=== PATIENT | male | born 1965 | race Caucasian/White ===

== ENCOUNTER 2017-12-13 12:48 | Emergency (ER) | payer OTHER, SELFPAY ==
[2017-12-13 12:49] VITALS: BP 132/94; PULSE 78; RESP 18; TEMP 36.8; O2SAT 96; BMI 37.2
--- NOTE | 2017-12-13 13:01 | XR_ITS ---
XR chest 2V Ordering Physician: Slime Doan MD Patient Age: 52 years: Male HISTORY: ITS.REASON: dizzinessheadache dizziness TECHNIQUE: PA and lateral chest COMPARISON :1 none FINDINGS Lungs clear no active disease. No pneumothorax. No pleural effusion. Heart nava and mediastinal structures satisfactory. Mild Chest wall T-spine satisfactory Mild hyperexpansion with slight flattening of diaphragm diaphragm. IMPRESSION: Lungs clear nothing definitely acute
--- NOTE | 2017-12-13 13:15 | CT_ITS ---
CT head/brain wo con Ordering Physician: Patient Age: 52 years: Male HISTORY: ITS.REASON: dizziness blurred vision near syncope TECHNIQUE: Routine CT head without contrast. Bone and brain windows performed and submitted to PACS for review. COMPARISON :None FINDINGS No acute intracranial findings . No hemorrhage. No mass. No subdural nor no extra-axial collections No territorial infarct. The ventricles and basal cisterns appear satisfactory. Orbits unremarkable. Bone windows. A generous mucosal thickening and inflammatory changes seen throughout the ethmoid air cells with mild/moderate mucosal thickening extending into inferior frontal sinuses bilaterally.. Left sphenoid sinus with possible trace air-fluid level versus mild mucosal thickening at top of the maxillary sinuses unremarkable. On CT cone machine operator view incidental note Prominent adenoids for age. & Prominent engorgement & swelling nasal turbinates. Mastoid air cells well-developed and clear. Middle air and IACs unremarkable. Cerumen at the left external canal. IMPRESSION . 1.. Brain within normal limits , with no acute intracranial findings on this noncontrast CT.. 2. Notable Paranasal sinus disease. Generous ethmoid sinusitis with mucosal thickening extends to the inferior frontal sinuses bilateral . Small air-fluid level versus posterior mucosal thickening at the left sphenoid sinus.
--- NOTE | 2017-12-13 13:15 | HMH.EDABDPAI ---
ED Disposition Attestation: On , the high probability of a clinically significant, sudden or life threatening deterioration of the following system(s) required my full and direct attention, intervention and personal management. The time I documented below is in addition to time spent performing reported procedures but includes the following listed in this critical care notation. Medical Decision Making Vital Signs: 12/13/17 12:49 Temperature 98.2 F Temperature Source Oral Pulse Rate [Right Brachial] 78 Respiratory Rate 18 Blood Pressure [Right Arm] 132/94 Blood Pressure Mean [Right Arm] 106 Blood Pressure Source [Right Arm] Automatic Cuff Blood Pressure Position [Right Arm] Sitting 02 Sat by Pulse Oximetry 96 Oxygen Delivery Method Room Air Orders (Tests/Meds): ORDERS Category Date Time Status Chest XR 2 view (NOT portable) [XR chest 2V] Stat Exams 12/13/17 13:01 Ordered Cardiac Enzymes Stat Lab 12/13/17 13:00 Received Complete Blood Count Auto Diff Stat Lab 12/13/17 13:00 Received Comprehensive Metabolic Panel Stat Lab 12/13/17 13:00 Received Abdominal Pain HPI - General Chief Complaint: Dizziness Stated Complaint: dizzy Time Seen by Provider: 12/13/17 13:15 Mode of Arrival: Ambulatory Limitations: No Limitations Description of Symptoms (Recalled from ER Triage Doc. by RN): Pt reports was sitting down to eat lunch when he got dizzy suddenly and broke out in a cold sweat. Pt reports was feeling normal prior to this. - Related Data Allergies Allergy/AdvReac Type Severity Reaction Status Date / Time Penicillin Allergy Unknown Uncoded 09/21/17 14:59 [facility] History Medical History: Denies:: Diabetes Mellitus Type 1, Diabetes Mellitus Type 2 - Social History Smoking Status: Former smoker Alcohol Intake: never - Psychiatric History Expresses thoughts of harming self/others: None Suicide Plan Description: No Plan
--- NOTE | 2017-12-13 13:16 | HMH.EDDIZZ ---
ED Disposition Clinical Impression: Dizziness of unknown cause Disposition: Home, Self-Care Condition on Discharge: Good Additional Instructions: follow up with Dr. Servin in one to two days Referrals: Diony Servin MD [Primary Care Provider] - - Critical Care Critical Care Time: No Attestation: On , the high probability of a clinically significant, sudden or life threatening deterioration of the following system(s) required my full and direct attention, intervention and personal management. The time I documented below is in addition to time spent performing reported procedures but includes the following listed in this critical care notation. Medical Decision Making Vital Signs: 12/13/17 12:49 12/13/17 14:49 Temperature 98.2 F Temperature Source Oral Pulse Rate [Right Brachial] 78 60 Respiratory Rate 18 16 Blood Pressure [Right Arm] 132/94 121/84 Blood Pressure Mean [Right Arm] 106 96 Blood Pressure Source [Right Arm] Automatic Cuff Automatic Cuff Blood Pressure Position [Right Arm] Sitting Sitting 02 Sat by Pulse Oximetry 96 96 Oxygen Delivery Method Room Air Room Air - Lab Data Lab Results 12/13/17 13:00: WBC 7.8, RBC 5.65, Hgb 15.7, Hct 46.3, MCV 81.9, MCH 27.7, MCHC 33.8, RDW 13.2, Plt Count 261, MPV 7.5, Neut % (Auto) 54.5, Lymph % (Auto) 32.1, [place] % (Auto) 7.1, Eos % (Auto) 5.4, Baso % (Auto) 0.8, Neut # (Auto) 4.3, Lymph # (Auto) 2.5, [place] # (Auto) 0.6, Eos # (Auto) 0.4, Baso # (Auto) 0.1 12/13/17 13:00: Sodium 140, Potassium 3.8, Chloride 102, Carbon Dioxide 32, Anion Gap 9.8, BUN 19 H, Creatinine 0.88, Estimated Creat Clear 183, Estimated GFR 91, Est GFR ( Amer) 110, Glucose 120 H, Calcium 9.2, Total Bilirubin 0.4, AST 18, ALT 47, Alkaline Phosphatase 60, Total Creatine Kinase 236, CK-MB (CK-2) 3.0, CK-MB (CK-2) Rel Index 1.3, Troponin I < 0.02, Total Protein 7.8, Albumin 4.1, Globulin 3.7 H, Albumin/Globulin Ratio 1.1 12/13/17 15:05: Troponin I < 0.02 Result diagrams: 12/13/17 13:00 12/13/17 13:00 Orders (Tests/Meds): ORDERS Category Date Time Status Chest XR 2 view (NOT portable) [XR chest 2V] Stat Exams 12/13/17 13:01 Taken - Radiology Data #1 Image(s): Chest Image Reviewed: Yes I reviewed the patient's radiology image Preliminary Findings: Normal/NAD, No Infiltrates Seen, Normal Lung Inflation Tani, Normal Heart Size - CT Data CT Scan: Head Time Received: 16:[address] Reviewed: Yes: I have reviewed the patient's CT results, I have viewed the radiologist's interpretation Preliminary Findings: Normal/NAD - ECG Data Tracing #1 I reviewed this ECG and interpreted as documented below: ECG normal with no acute: arrhythmias, ischemia, conduction abnormalities, chamber hypertrophy - Fidencio Inquiry Pt receiving controlled substance: No - Reevaluation(s) Time: 14:26 Reevaluation #1: Pt states his entire right hand feels numb. He was reexamined. Hand is warm, well perfused, with FROM. Neg Tinel's and neg Phalen's. Has IV in right antecubital area that is removed and he is moving his hand and arm easily. Subjectively numb over ulnar nerve distribution of right hand to light touch. Ribbon Inker equal. Will reevaluate once IV has been out for more time and he has been able to move his arm and hand better. No headache. No other neurological sx. Medical Decision Narrative: Second troponin normal, patient stable, no complaints, may f/u PCP Dizzy HPI - General Chief Complaint: Dizziness Stated Complaint: dizzy Time Seen by Provider: 12/13/17 13:15 Mode of Arrival: Ambulatory Source of Information: Patient Limitations: No Limitations Description of Symptoms (Recalled from ER Triage Doc. by RN): Pt reports was sitting down to eat lunch when he got dizzy suddenly and broke out in a cold sweat. Pt reports was feeling normal prior to this. - History of Present Illness HPI Narrative: Patient was walking from truck to lunch place when he felt a little lightheaded
--- NOTE | 2017-12-13 13:19 | ED_ITS ---
ED Disposition Clinical Impression: Dizziness of unknown cause Disposition: Home, Self-Care Condition on Discharge: Good Additional Instructions: follow up with Dr. Servin in one to two days Referrals: Diony Servin MD [Primary Care Provider] - - Critical Care Critical Care Time: No Attestation: On , the high probability of a clinically significant, sudden or life threatening deterioration of the following system(s) required my full and direct attention, intervention and personal management. The time I documented below is in addition to time spent performing reported procedures but includes the following listed in this critical care notation. Medical Decision Making Vital Signs: 12/13/17 12:49 12/13/17 14:49 Temperature 98.2 F Temperature Source Oral Pulse Rate [Right Brachial] 78 60 Respiratory Rate 18 16 Blood Pressure [Right Arm] 132/94 121/84 Blood Pressure Mean [Right Arm] 106 96 Blood Pressure Source [Right Arm] Automatic Cuff Automatic Cuff Blood Pressure Position [Right Arm] Sitting Sitting 02 Sat by Pulse Oximetry 96 96 Oxygen Delivery Method Room Air Room Air - Lab Data Lab Results 12/13/17 13:00: WBC 7.8, RBC 5.65, Hgb 15.7, Hct 46.3, MCV 81.9, MCH 27.7, MCHC 33.8, RDW 13.2, Plt Count 261, MPV 7.5, Neut % (Auto) 54.5, Lymph % (Auto) 32.1 , [place] % (Auto) 7.1, Eos % (Auto) 5.4, Baso % (Auto) 0.8, Neut # (Auto) 4.3, Lymph # (Auto) 2.5, [place] # (Auto) 0.6, Eos # (Auto) 0.4, Baso # (Auto) 0.1 12/13/17 13:00: Sodium 140, Potassium 3.8, Chloride 102, Carbon Dioxide 32, Anion Gap 9.8, BUN 19 H, Creatinine 0.88, Estimated Creat Clear 183, Estimated GFR 91, Est GFR ( Amer) 110, Glucose 120 H, Calcium 9.2, Total Bilirubin 0.4, AST 18, ALT 47, Alkaline Phosphatase 60, Total Creatine Kinase 236, CK-MB ( CK-2) 3.0, CK-MB (CK-2) Rel Index 1.3, Troponin I < 0.02, Total Protein 7.8, Albumin 4.1, Globulin 3.7 H, Albumin/Globulin Ratio 1.1 12/13/17 15:05: Troponin I < 0.02 Result diagrams: 12/13/17 13:00 12/13/17 13:00 Orders (Tests/Meds): ORDERS Category Date Time Status Chest XR 2 view (NOT portable) [XR chest 2V] Stat Exams 12/13/17 13:01 Taken - Radiology Data #1 Image(s): Chest Image Reviewed: Yes I reviewed the patient's radiology image Preliminary Findings: Normal/NAD, No Infiltrates Seen, Normal Lung Inflation Tani , Normal Heart Size - CT Data CT Scan: Head Time Received: 16:[address] Reviewed: Yes: I have reviewed the patient's CT results, I have viewed the radiologist's interpretation Preliminary Findings: Normal/NAD - ECG Data Tracing #1 I reviewed this ECG and interpreted as documented below: ECG normal with no acute: arrhythmias, ischemia, conduction abnormalities, chamber hypertrophy - Fidencio Inquiry Pt receiving controlled substance: No - Reevaluation(s) Time: 14:26 Reevaluation #1: Pt states his entire right hand feels numb. He was reexamined. Hand is warm, well perfused, with FROM. Neg Tinel's and neg Phalen's. Has IV in right antecubital area that is removed and he is moving his hand and arm easily. Subjectively numb over ulnar nerve distribution of right hand to light touch. Photographic Intelligence Officer equal. Will reevaluate once IV has been out for more time and he has been able to move his arm and hand better. No headache. No other neurological sx. Medical Decision Narrative: Second troponin normal, patient stable, no complaints, may f/u PCP
[2017-12-13 13:37] LABS: Basophils # 0.1 K/mm3 (0-0.2); Basophils % 0.8 % (0.1-2.0); Eosinophils # 0.4 K/mm3 (0.0-0.4); Eosinophils % 5.4 % (0.1-12.0); Hematocrit 46.3 % (42.0-52.0); Hemoglobin 15.7 g/dL (14.1-18.0); Lymphocytes # 2.5 K/mm3 (0.7-4.5); Lymphocytes % 32.1 K/mm3 (10-50); Mean Corpuscular HGB Conc 33.8 g/dL (31.8-35.4); Mean Corpuscular Hemoglobin 27.7 pg (27.0-31.2); Mean Corpuscular Volume 81.9 fl (80-94); Mean Platelet Volume 7.5 fl (7.4-10.4); Monocytes # 0.6 K/mm3 (0.1-1.0); Monocytes % 7.1 % (1.7-9.3); Neutrophils # 4.3 K/mm3 (1.8-7.8); Neutrophils % 54.5 % (37.0-80.0); Platelet Count 261 K/mm3 (142-424); Red Blood Count 5.65 M/mm3 (4.60-6.20); Red Cell Distribution Width 13.2 % (11.5-17.5); White Blood Count 7.8 K/mm3 (4.8-10.8)
[2017-12-13 13:44] LABS: Alanine Aminotransferase 47 U/L (12-78); Albumin Level 4.1 gm/dL (3.4-5.0); Albumin/Globulin Ratio 1.1 (1.1-1.8); Alkaline Phosphatase 60 U/L (46-116); Anion Gap 9.8 mEq/L (5-15); Aspartate Amino Transferase 18 U/L (15-37); Bilirubin,Total 0.4 mg/dL (0.2-1.0); Blood Urea Nitrogen 19 mg/dL (7-18); CKMB Relative Index 1.3 U/L (0-4.0); Calcium 9.2 mg/dL (8.5-10.1); Carbon Dioxide 32 mmol/L (21.0-32.0); Chloride 102 mmol/L (98-107); Creatine Kinase 236 U/L (39-308); Creatinine Clearance Estimated 183 mL/min (0-300); Creatinine,Serum 0.88 mg/dL (0.70-1.30); Estimated Glomerular Filt Rate 91 ml/min (>60); GFR (African American) 110 ML/MIN (>60); Globulin 3.7 gm/dl (1.3-3.2); Glucose 120 mg/dL (74-106); Potassium 3.8 mmoL/L (3.5-5.1); Sodium 140 mmol/L (136-145); Total Protein,Serum 7.8 gm/dL (6.4-8.2); Troponin I < 0.02 ng/ml (0.00-0.06)
--- NOTE | 2017-12-13 14:18 | PC.NURSE ---
pt called out for someone to come talk to him. I went into room and pt stated that his right arm was going numb, reported this to Dr. Doan. Dr. Doan asked that IV be removed. IV removed at this time.
[2017-12-13 14:49] VITALS: BP 121/84; PULSE 60; RESP 16; O2SAT 96
[2017-12-13 15:29] LABS: Troponin I < 0.02 ng/ml (0.00-0.06)
[2017-12-13 16:06] VITALS: BP 121/84; PULSE 68; RESP 18; TEMP 36.7; O2SAT 98
== END 2017-12-13 16:07 | disposition home or self-care (01) ==
PROVIDERS: Emergency Provider Emergency Medicine; Family Provider Family Medicine; PCP Family Medicine
DX: R42 Dizziness and giddiness (principal)
CPT/HCPCS: 36415; 70450; 71046; 80053; 82550; 82553; 84484; 85025; 93005; 99283

== ENCOUNTER 2018-05-30 08:30 | Outpatient (RCR) | payer OTHER, SELFPAY ==
--- NOTE | 2018-05-24 09:04 | HMH.PTOPEV ---
PT Outpatient Evaluation Rehab PT Outpatient Evaluation Start: 05/24/18 08:05 Freq: Status: Active Protocol: Document 05/24/18 08:51 ALCIRA (Rec: 05/24/18 09:04 PHOLD [id number]) Electronically Signed By Chris Perez, PT 05/24/18 08:51 Outpatient Therapy Subjective History Subjective History Pt is 53 yowm who presents with acute onset LBP and left LE tingling x ~ 1 mo. He reports he has hx of LBP with a lumbar surgery (possibly laminectomy) performed ~ 18 yrs ago with good results. He reports this episode was insidious in nature, but he does lift and reach a lot at work. He continues to have pain/tingling/numbness throughout his left LE, but no c/o weakness. He reports no significant PMH. Chief Complaint Pain Symptom Type Ache Symptoms Relieved By Rest/Positioning Symptoms Aggravated By Bending/Stooping Twisting Prior Functional Limitations None Current Functional Limitations Driving Symptom Description Constant but Variable Level of pain today (0-10) 1 Pain scale - at its worst (0-10) 8 Lumbopelvic Eval Gait Observation General Gait Pattern Observation No Deviations/Normal Palapation tenderness left buttock tenderness Yes: piriformis area Lumbar/Sacral Palpation Findings Tenderness Lumbar/Sacral Palpation Overall Comment left SI Range of Motion Lumbar Spine Active Flexion Range of 0-55 Motion (degrees) Lumbar Spine Active Extension Range of 0-20 Motion (degrees) Left Lumbar Spine Lateral Flexion Active 0-20 Range of Motion (degrees) Right Lumbar Spine Lateral Flexion 0-20 Active Range of Motion (degrees) Manual Muscle Test Bilateral Knee Extension Strength Grade 5 Normal Knee Flexion Strength Grade 5 Normal Hip Flexion Strength Grade 5 Normal Hip Abduction Strength Grade 5 Normal Hip Adduction Strength Grade 5 Normal Hip External Rotation Strength Grade 5 Normal Hip Internal Rotation Strength Grade 5 Normal Hip Extension Strength Grade 5 Normal Gluteus Sunil Strength Grade 5 Normal Extensor Hallucis Longus Strength Grade 5 Normal Ankle Dorsiflexion Strength Grade 5 Normal Gastronemius/Soleus Strength Grade 5 Normal DTR Rt Patellar 2+ Lt Patellar 2+ Rt Gastroc/Soleus 2+ Lt Gastroc/Soleus
== END 2018-05-30 08:31 | disposition home or self-care (01) ==
LOC: PT 08:30
PROVIDERS: Family Provider Family Medicine; PCP Family Medicine; Visit Provider Family Medicine
DX: M54.9 Dorsalgia, unspecified (principal)
CPT/HCPCS: 97010; 97014; 97033; 97110; 97163; G0283

== ENCOUNTER → 2018-09-12 11:05 | Outpatient (CLI) | payer OTHER, SELFPAY ==
--- NOTE | 2018-09-12 11:22 | XR_ITS ---
EXAM: XR lumbar spine min 4V HISTORY: ITS.REASON: LOW BACK PAIN ORDERING PHYSICIAN: Ashley Hackett PATIENT AGE: 53 years COMPARISON: None FINDINGS: Normal alignment. No fracture or dislocation. No lytic or blastic change. There is mild degenerative disc disease at L5-S1. Mild facet hypertrophic changes also present at L5-S1. There is some sclerosis of the superior aspect of the right SI joint. IMPRESSION: 1. Mild degenerative disc disease and facet arthritic change at L5-S1. 2. Sclerosis of the right SI joint superiorly
--- NOTE | 2018-09-12 15:59 | XR_ITS ---
XR hip LT 2-3V w/pelvis HISTORY: ITS.REASON: LEFT HIP PAIN ORDERING PHYSICIAN: Ashley Hackett PATIENT AGE: 53 years COMPARISON: None FINDINGS: No fracture or dislocation is evident. No significant degenerative change. No lytic or blastic change. Unremarkable soft tissues. There is a small bone island in the femoral head IMPRESSION: Negative left hip
== END ==
PROVIDERS: PCP Nurse Practitioner Family; Visit Provider Nurse Practitioner Family
DX: M54.5 Low back pain (principal); M25.552 Pain in left hip
CPT/HCPCS: 72110; 73502

== ENCOUNTER → 2018-09-26 08:37 | Outpatient (POV) | payer OTHER, SELFPAY ==
[2018-09-26 08:55] VITALS: BP 131/81; PULSE 70; RESP 18; O2SAT 99
--- NOTE | 2018-09-26 09:14 | HMH.PMCON ---
Assessment and Plan (1) Sacroiliitis Current visit: Yes Status: Chronic Category: Medical Code(s): M46.1 - Sacroiliitis, not elsewhere classified (2) Back pain Current visit: Yes Status: Chronic Qualifiers: Back pain location: low back pain Chronicity: chronic Category: Medical Code(s): M54.9 - Dorsalgia, unspecified - Assessment and plan all Dx Assessment and Plan for all problems:: Patient has an x-ray showing sclerosis of the SI joints. I believe that given his symptomology bilateral SI joint injections will be beneficial for him. Patient is going to continue his home stretching program and continue his anti-inflammatories. I will follow-up with him after his injection. This note was dictated using voice recognition software and may contain errors or omissions HPI - Data of Consult Consult date: 09/26/18 Requesting Physician: Caterina Sanderson APRN Primary Care Provider: Diony Servin MD - Consult Narrative Reason for consult: back pain, hip pain History of present illness: Mr. Marinelli is a 53 year old male who presents today for consultation in regards to his hip and back pain. Patient states that bending increases pain while resting and Tylenol decrease pain. Patient rates her pain his pain is 5 out of 10 he states he has had it for 6 months or more. Patient states that it is getting worse. Patient has done and completed physical therapy with minimal relief. Patient has had back surgery in the past. CC: Caterina Sanderson APRN [facility] History I have reviewed the patient's past medical history: Yes Medical History: Reports:: Diabetes Mellitus Type 2 (borderline), Gastroesophageal Reflux Disease(GERD), Hyperlipidemia, Hypertension, Lung Disease (sleep apnea- uses CPAP) Denies:: Diabetes Mellitus Type 1, Internal Pacemaker, Seizures Other Surgeries: Yes: Other (back sx, ganglion cyst removal). No: Pacemaker - *Social History Smoking Status: Never smoker Alcohol Intake: never Occupational Status: employed Housing: house Household Members: spouse - Psychiatric History Expresses thoughts of harming self/others: None Suicide Plan Description: No Plan *Family Hx:: Unable to obtain Review of Systems - Review of Systems ROS General: no recent weight change, no fever, no sleep disturbances Respiratory: no cough, no shortness of air, no recurring pulmonary infections Cardiovascular/Peripheral Vascular: No chest pain, No palpitations, no edema, no shortness of breath. Gastrointestinal: no incontinence, normal bowel movements reported Genitourinary: no incontinence Musculoskeletal: SI joint pain, back pain Psychiatric: normal mood/ affect Neurological: [denies weakness in extremities], [denies balance issues] Meds Home Medications Medication Instructions Recorded Confirmed Type Furosemide [Furosemide 20mg Tab] 20 mg PO DAILY 07/08/18 07/15/18 History Losartan/Hydrochlorothiazide 1 tab PO DAILY 07/08/18 07/15/18 History [Losartan-Hctz 100-12.5 mg Tab] Ascorbic Acid [Vitamin C] 1,000 mg PO DAILY 07/15/18 07/15/18 History Esomeprazole Magnesium [Nexium] 10 mg PO DAILY 07/15/18 07/15/18 History Gluc/Mitchell-MSM#1/C/Wilberto/Terrance/Bor 1 each PO DAILY 07/15/18 07/15/18 History [Osteo Bi-Flex Caplet] Glucosamine Sulfate Dipot Chlr 1,500 mg PO DAILY 07/15/18 07/15/18 History [Glucosamine] Levothyroxine Sodium 25 mcg PO DAILY 07/15/18 07/15/18 History [Levothyroxine 25mcg (0.025mg) Tab] Loratadine [Allergy Relief] 10 mg PO DAILY 07/15/18 07/15/18 History Mv-Mins/Folic/Lycopene/Ginkgo [One 1 each PO DAILY 07/15/18 07/15/18 History Daily For Men 50+ Adv Tab] Naproxen 500 mg PO DAILY 07/15/18 07/15/18 History Rosuvastatin Calcium 10 mg PO DAILY 07/15/18 07/15/18 History Allergies Allergy/AdvReac Type Severity Reaction Status Date / Time Penicillins Allergy Mild Hives Verified 07/08/18 14:11 Objective Vital signs: Pulse Resp BP Pulse Ox 70
--- NOTE | 2018-09-26 09:22 | P.CONS_ITS ---
Assessment and Plan (1) Sacroiliitis Current visit: Yes Status: Chronic Category: Medical Code(s): M46.1 - Sacroiliitis, not elsewhere classified (2) Back pain Current visit: Yes Status: Chronic Qualifiers: Back pain location: low back pain Chronicity: chronic Category: Medical Code(s): M54.9 - Dorsalgia, unspecified - Assessment and plan all Dx Assessment and Plan for all problems:: Patient has an x-ray showing sclerosis of the SI joints. I believe that given his symptomology bilateral SI joint injections will be beneficial for him. Patient is going to continue his home stretching program and continue his anti-inflammatories. I will follow-up with him after his injection. This note was dictated using voice recognition software and may contain errors or omissions HPI - Data of Consult Consult date: 09/26/18 Requesting Physician: Caterina Sanderson APRN Primary Care Provider: Diony Servin MD - Consult Narrative Reason for consult: back pain, hip pain History of present illness: Mr. Marinelli is a 53 year old male who presents today for consultation in regards to his hip and back pain. Patient states that bending increases pain while resting and Tylenol decrease pain. Patient rates her pain his pain is 5 out of 10 he states he has had it for 6 months or more. Patient states that it is getting worse. Patient has done and completed physical therapy with minimal relief. Patient has had back surgery in the past. CC: Caterina Sanderson APRN [facility] History I have reviewed the patient's past medical history: Yes Medical History: Reports:: Diabetes Mellitus Type 2 (borderline), Gastroesophageal Reflux Disease(GERD), Hyperlipidemia, Hypertension, Lung Disease (sleep apnea- uses CPAP) Denies:: Diabetes Mellitus Type 1, Internal Pacemaker, Seizures Other Surgeries: Yes: Other (back sx, ganglion cyst removal). No: Pacemaker - *Social History Smoking Status: Never smoker Alcohol Intake: never Occupational Status: employed Housing: house Household Members: spouse - Psychiatric History Expresses thoughts of harming self/others: None Suicide Plan Description: No Plan *Family Hx:: Unable to obtain Review of Systems - Review of Systems ROS General: no recent weight change, no fever, no sleep disturbances Respiratory: no cough, no shortness of air, no recurring pulmonary infections Cardiovascular/Peripheral Vascular: No chest pain, No palpitations, no edema, no shortness of breath. Gastrointestinal: no incontinence, normal bowel movements reported Genitourinary: no incontinence Musculoskeletal: SI joint pain, back pain Psychiatric: normal mood/ affect Neurological: [denies weakness in extremities], [denies balance issues] Meds Home Medications Medication Instructions Recorded Confirmed Type Furosemide [Furosemide 20mg Tab] 20 mg PO DAILY 07/08/18 07/15/18 History Losartan/Hydrochlorothiazide 1 tab PO DAILY 07/08/18 07/15/18 History [Losartan-Hctz 100-12.5 mg Tab] Ascorbic Acid [Vitamin C] 1,000 mg PO DAILY 07/15/18 07/15/18 History Esomeprazole Magnesium [Nexium] 10 mg PO DAILY 07/15/18 07/15/18 History Gluc/Mitchell-MSM#1/C/Wilberto/Terrance/Bor 1 each PO DAILY 07/15/18 07/15/18 History [Osteo Bi-Flex Caplet] Glucosamine Sulfate Dipot Chlr 1,500 mg PO DAILY 07/15/18 07/15/18 History [Glucosamine] Levothyroxine Sodium 25 mcg PO DAILY 07/15/18 07/15/18 History
== END ==
PROVIDERS: PCP Family Medicine; Visit Provider Clinical Nurse Specialist Family Health
DX: M46.1 Sacroiliitis, not elsewhere classified (principal); M54.9 Dorsalgia, unspecified
CPT/HCPCS: 99202

== ENCOUNTER → 2018-11-07 15:10 | Outpatient (POV) | payer OTHER, SELFPAY ==
[2018-11-07 15:22] VITALS: BP 147/94; PULSE 98; RESP 18; O2SAT 99; BMI 34.7
--- NOTE | 2018-11-08 08:20 | P.CONS_ITS ---
[facility] Pain Management SOAP Note Subjective:: Patient is a pleasant 53-year-old white male who we are treating for hip pain. Patient states that he is doing well after his left SI joint injection. He is having some bursa pain at this time. We discussed doing one more injection to see if this is beneficial for him. Patient is continuing home stretching exercises and is on anti-inflammatories. The pain is in his left hip and he rates it a 4 out of 10 today. ROS General: no recent weight change, no fever, no sleep disturbances Respiratory: no cough, no shortness of air, no recurring pulmonary infections Cardiovascular/Peripheral Vascular: No chest pain, No palpitations, no edema, no shortness of breath. Gastrointestinal: no incontinence, normal bowel movements reported Genitourinary: no incontinence Musculoskeletal: Left hip pain Psychiatric: normal mood/ affect Neurological: [denies weakness in extremities], [denies balance issues] Objective:: Physical Exam General: Alert and oriented x3, no acute distress, pleasant and cooperative, [on room air] Lungs: Resps E/U, Symmetrical chest expansion, Eyes: PERRL Musculoskeletal: Flexion and extension of lumbar spine somewhat guarded secondary to pain, deep tendon reflexes normal, strength in upper and lower extremities [5/5], [abnormal gait noted] positive Chester's test, positive hip stress test, positive SI compression test on the left side. Extreme point tenderness over left greater trochanteric bursa Neurological: speech clear, tire adjuster equal, no gross sensory deficits Assessment:: Sacroiliitis, bursitis Plan:: We will schedule left SI and left greater trochanteric bursa injection for the patient. I will follow-up with the patient at that time. Dr. Duarte has reviewed this note and agrees with this plan of care. This note was dictated using voice recognition software and may contain errors or omissions
== END ==
PROVIDERS: PCP Family Medicine; Visit Provider Clinical Nurse Specialist Family Health
DX: M46.1 Sacroiliitis, not elsewhere classified (principal); M71.9 Bursopathy, unspecified
CPT/HCPCS: 99213

== ENCOUNTER → 2018-12-13 09:21 | Outpatient (POV) | payer OTHER, SELFPAY ==
[2018-12-13 09:24] VITALS: BP 158/98; PULSE 85; RESP 18; O2SAT 98; BMI 35.9
--- NOTE | 2018-12-13 09:55 | P.CONS_ITS ---
[facility] Pain Management SOAP Note Subjective:: Patient is a pleasant 53-year-old white male who presents today for follow-up. Patient is having worsening back pain now radiating down his right leg causing weakness and numbness and tingling. It travels all the way to his toes. He rates his pain a 8 out of 10. Patient is currently on prednisone from his primary care physician. He has no recent updated MRI. Patient has had back surgery in the past. ROS General: no recent weight change, no fever, no sleep disturbances Respiratory: no cough, no shortness of air, no recurring pulmonary infections Cardiovascular/Peripheral Vascular: No chest pain, No palpitations, no edema, no shortness of breath. Gastrointestinal: no incontinence, normal bowel movements reported Genitourinary: no incontinence Musculoskeletal: Back pain, leg pain Psychiatric: normal mood/ affect Neurological: [denies weakness in extremities], [denies balance issues] Objective:: Physical Exam General: Alert and oriented x3, no acute distress, pleasant and cooperative, [on room air] Lungs: Resps E/U, Symmetrical chest expansion, Eyes: PERRL Musculoskeletal: Flexion and extension of lumbar spine somewhat guarded secondary to pain, deep tendon reflexes normal, strength in upper and right lower extremities [5/5], left lower extremity 4/5, antalgic gait noted, positive straight leg raise test on the left side at 30 degrees Neurological: speech clear, satellite tv technician equal, no gross sensory deficits Assessment:: Degenerative disc disease lumbar spine with lumbar radiculopathy along with postlaminectomy syndrome and sacroiliitis Plan:: We will schedule a updated MRI for the patient I believe it would be beneficial given his next and worsening symptomology. I will follow-up with the patient after his MRI and reassess his symptoms at that time Dr. Duarte has reviewed this note and agrees with this plan of care. This note was dictated using voice recognition software and may contain errors or omissions
== END ==
PROVIDERS: PCP Family Medicine; Visit Provider Clinical Nurse Specialist Family Health
DX: M51.16 Intervertebral disc disorders with radiculopathy, lumbar region (principal); M96.1 Postlaminectomy syndrome, not elsewhere classified; M46.1 Sacroiliitis, not elsewhere classified
CPT/HCPCS: 99213

== ENCOUNTER → 2018-12-20 12:44 | Outpatient (CLI) | payer OTHER, SELFPAY ==
--- NOTE | 2018-12-20 12:49 | MR_ITS ---
MR lumbar spine wo con, MR 3-d myelogram/MRCP HISTORY: PT states low back pain, left leg pain, numbness and tingling X 6 months or so. Prior laminectomy years ago. ITS.REASON: BACK PAIN ORDERING PHYSICIAN: Caterina Sanderson PATIENT AGE: 53 years Comparison: X-RAY 09/12/18 TECHNIQUE: Standard multiplanar multiecho sequences are performed without contrast. 3-D MIP and myelographic images are also rendered and reviewed FINDINGS: There is normal alignment. Spinal cord ends at the L1 level. T12-L1, L1-L2, and L2-L3 have an unremarkable appearance. L3-L4: There is mild facet and ligamentum flavum hypertrophy with mild bilateral foraminal narrowing. L4-L5: There is mild bulging disc along with a broad-based left paracentral and foraminal disc protrusion versus disc osteophyte complex. This is causing moderate left-sided lateral recess narrowing abutting and slightly displacing the L5 nerve root on the left. There is transverse narrowing of the canal this level due to facet and ligamentum flavum hypertrophy with the canal measuring 9 mm in transverse dimension. There is moderate bilateral foraminal narrowing. L5-S1: There is degenerative disc disease with mild retrolisthesis of L5 on S1 of 3 mm and concentric bulging disc with moderate bilateral foraminal narrowing. Suspected laminotomy defect on the left at L5-S1. IMPRESSION: 1. There is mild bulging disc at L4-L5 along with a broad-based left paracentral and foraminal disc protrusion versus disc osteophyte complex. This is causing moderate left-sided lateral recess narrowing abutting and slightly displacing the L5 nerve root on the left. There is transverse narrowing of the canal this level due to facet and ligamentum flavum hypertrophy with the canal measuring 9 mm in transverse dimension. There is moderate bilateral foraminal narrowing 2. Degenerative disc disease L5-S1 with bulging disc and moderate bilateral foraminal narrowing 3. No extruded herniated disc evident
== END ==
PROVIDERS: PCP Family Medicine; Visit Provider Clinical Nurse Specialist Family Health
DX: M54.5 Low back pain (principal)
CPT/HCPCS: 72148; 76376

== ENCOUNTER → 2019-01-03 09:08 | Outpatient (POV) | payer OTHER, SELFPAY ==
[2019-01-03 09:20] VITALS: BP 151/98; PULSE 75; RESP 18; O2SAT 98; BMI 35.9
--- NOTE | 2019-01-03 09:21 | HMH.PAINSOAP ---
[facility] Pain Management SOAP Note Subjective:: She is a pleasant 53-year-old white male who presents today for follow-up after MRI. Patient does have a lot of pain in his left leg. He has an L4-L5 broad-based left paracentral disc protrusion causing moderate left-sided lateral recess narrowing and abutting and displacing the L5 nerve root to the left. This is according to the report. Patient states that the injections seem to worsen his pain. We discussed going to see if neurosurgeon he is interested in this. He rates his pain a 9 out of 10. He is on anti-inflammatories. ROS General: no recent weight change, no fever, no sleep disturbances Respiratory: no cough, no shortness of air, no recurring pulmonary infections Cardiovascular/Peripheral Vascular: No chest pain, No palpitations, no edema, no shortness of breath. Gastrointestinal: no incontinence, normal bowel movements reported Genitourinary: no incontinence Musculoskeletal: Back pain, leg pain Psychiatric: normal mood/ affect Neurological: [denies weakness in extremities], [denies balance issues] Objective:: Physical Exam General: Alert and oriented x3, no acute distress, pleasant and cooperative, [on room air] Lungs: Resps E/U, Symmetrical chest expansion, Eyes: PERRL Musculoskeletal: Flexion and extension of lumbar spine somewhat guarded secondary to pain, deep tendon reflexes normal, strength in upper and lower extremities [5/5], [abnormal gait noted] Neurological: speech clear, machine hoop maker helper equal, no gross sensory deficits Assessment:: Degenerative disc disease lumbar spine with lumbar radiculopathy Plan:: We will send the patient for neurosurgical consultation. Will follow up with him in on as-needed basis after this. Dr. Duarte has reviewed this note and agrees with this plan of care. This note was dictated using voice recognition software and may contain errors or omissions
--- NOTE | 2019-01-03 09:24 | P.CONS_ITS ---
[facility] Pain Management SOAP Note Subjective:: She is a pleasant 53-year-old white male who presents today for follow-up after MRI. Patient does have a lot of pain in his left leg. He has an L4-L5 broad- based left paracentral disc protrusion causing moderate left-sided lateral recess narrowing and abutting and displacing the L5 nerve root to the left. This is according to the report. Patient states that the injections seem to worsen his pain. We discussed going to see if neurosurgeon he is interested in this. He rates his pain a 9 out of 10. He is on anti-inflammatories. ROS General: no recent weight change, no fever, no sleep disturbances Respiratory: no cough, no shortness of air, no recurring pulmonary infections Cardiovascular/Peripheral Vascular: No chest pain, No palpitations, no edema, no shortness of breath. Gastrointestinal: no incontinence, normal bowel movements reported Genitourinary: no incontinence Musculoskeletal: Back pain, leg pain Psychiatric: normal mood/ affect Neurological: [denies weakness in extremities], [denies balance issues] Objective:: Physical Exam General: Alert and oriented x3, no acute distress, pleasant and cooperative, [on room air] Lungs: Resps E/U, Symmetrical chest expansion, Eyes: PERRL Musculoskeletal: Flexion and extension of lumbar spine somewhat guarded secondary to pain, deep tendon reflexes normal, strength in upper and lower extremities [5/5], [abnormal gait noted] Neurological: speech clear, mathematical technician equal, no gross sensory deficits Assessment:: Degenerative disc disease lumbar spine with lumbar radiculopathy Plan:: We will send the patient for neurosurgical consultation. Will follow up with him in on as-needed basis after this. Dr. Duarte has reviewed this note and agrees with this plan of care. This note was dictated using voice recognition software and may contain errors or omissions
== END ==
PROVIDERS: PCP Family Medicine; Visit Provider Clinical Nurse Specialist Family Health
DX: M51.16 Intervertebral disc disorders with radiculopathy, lumbar region (principal)
CPT/HCPCS: 99212

== ENCOUNTER → 2019-01-19 15:11 | Outpatient (POV) | payer OTHER, SELFPAY | PROVIDERS: Visit Provider Neurological Surgery | DX: Z00.00 Encounter for general adult medical examination without abnormal findings (principal) ==

== ENCOUNTER → 2019-02-24 07:40 | Outpatient (CLI) | payer OTHER, SELFPAY ==
--- NOTE | 2019-02-24 07:46 | MR_ITS ---
MR lumbar spine wo con Ordering Physician: Adela Renee Patient Age: 54 years: Male HISTORY: ITS.REASON: LUMBAR DISC HERNIATION WITH RADICULOPATHY low back pain past one year. Left leg pain numbness and tingling. Low back pain 1 year or longer. Left leg pain numbness and tingling. Patient scheduled for surgery next month this MRI prior to surgery. TECHNIQUE: Sagittal STIR, T1, T2, axial T1 and T2. On 1.5T Siemens wide bore MRI. 3-D MR myelogram image set obtained & performed on MRI workstation. Additional sagittal thin section T2 weighted dataset obtained from this latter acquisition as well (---76 CPT) COMPARISON :12/20/2018 MRI lumbar spine FINDINGS ------- . The lumbar vertebral bodies are intact. Conus ends at L1/L2. Slightly modest volume underlying osseous spinal canal at mid and lower L-spine.. T12/L1, L1/L2,. Disc intact. L2/3. Disc intact. [id number]-lr-eguczrev facet hypertrophy. L3/4. Disc intact. With only scant foraminal bulge moderate facet hypertrophy the features yield mild bilateral foraminal encroachment L4/L5 disc bulge additional disc extrusion, disc herniation left paracentral. This disc extrusion extends caudal to the disc at the left paracentral region yielding more marked left recess stenosis and more pronounced encroachment at the entry left foramen. It indents the thecal sac and displaces the left L5 nerve root and possibly left L1. L5/S1. Degenerative disc space narrowing with slight 4 mm mm retrolisthesis of L5 on S1.. Posterior hypertrophic ridging with disc bulge. Bilateral facet hypertrophy most evident the left. Features combine to yield moderate recess and foraminal encroachment bilaterally left more so than right.... Findings at this level appear unchanged 3-D MRI myelogram image set shows the narrowing of the spinal canal most pronounced at L4/5 be based upon the left aspect of the thecal sac L4/5 is similar if not slightly more pronounced today IMPRESSION 1. L4/5: Progressive prominent/large caudal Disc Herniation to the Left since December 2018. . Progressive caudal disc extrusion & disc herniation vs December 20, 2018 MR lumbar .This large caudal left disc herniation now yields/severe left recess stenosis.... As well as additional effacement of the thecal sac to the left 2. L5/S1:. Degenerative disc space narrowing with diffuse posterior hypertrophic ridging and slight retrolisthesis of L5 on S1. Bilateral facet hypertrophy. Moderate bilateral recess stenosis
== END ==
PROVIDERS: PCP Nurse Practitioner Family; Visit Provider Physician Assistant Medical
DX: M51.16 Intervertebral disc disorders with radiculopathy, lumbar region (principal)
CPT/HCPCS: 72148; 76376

== ENCOUNTER → 2019-03-06 09:20 | Outpatient (CLI) | payer OTHER, SELFPAY ==
[2019-03-06 10:55] LABS: Potassium 5.2 mmoL/L (3.5-5.1)
== END ==
PROVIDERS: Visit Provider Physician Assistant Medical
DX: E87.5 Hyperkalemia (principal)
CPT/HCPCS: 36415; 84132

== ENCOUNTER → 2020-08-19 14:15 | Outpatient (CLI) | payer BC, SELFPAY | PROVIDERS: PCP Family Medicine; Visit Provider Family Medicine | DX: Z20.828 Contact with and (suspected) exposure to other viral communicable diseases (principal); U07.1 COVID-19 | CPT/HCPCS: U0003 ==

== ENCOUNTER → 2020-08-28 08:45 | Outpatient (CLI) | payer BC, SELFPAY ==
[2020-08-28 21:14] LABS: Covid-19 Nasal PCR Sendout Lex Positive
== END ==
PROVIDERS: PCP Family Medicine; Visit Provider Family Medicine
DX: Z20.828 Contact with and (suspected) exposure to other viral communicable diseases (principal); U07.1 COVID-19
CPT/HCPCS: U0004

== ENCOUNTER → 2021-11-28 08:16 | Outpatient (CLI) | payer BC, SELFPAY ==
--- NOTE | 2021-11-28 08:19 | CT_ITS ---
FINAL REPORT CLINICAL HISTORY: H/O NICOTINE DEPENDENCE FORMER SMOKER, QUIT 6 YEARS AGO. SMOKED 1 1/2 PPD X 30. FINDINGS: Low-Dose Chest CT CTDI vol (mGy): 2.90 DLP (mGy-cm): 110.20 Axial images were obtained from the lung apex to the mid abdomen by computed tomography. Low-dose protocol was utilized. FINDINGS: CHEST: There is no axillary adenopathy. There is no hilar or mediastinal adenopathy. The heart is proper size. There is no pericardial or pleural effusion. Limited images of the upper abdomen are unremarkable. Lung window images demonstrate a multitude of small nodules seen in the right lung. These nodules appear to be calcified IMPRESSION: Lung RADS category 1. Recommend 12 month follow-up low-dose chest CT. Reviewed, Interpreted and Dictated by Anand Carson MD Transcribed by Tammy Haque Authenticated by Anand Carson MD on 11/28/2021 10:36:28 AM [facility]
== END ==
PROVIDERS: PCP Family Medicine; Visit Provider Family Medicine
DX: Z87.891 Personal history of nicotine dependence (principal); Z12.11 Encounter for screening for malignant neoplasm of colon
CPT/HCPCS: 71271

== ENCOUNTER 2022-07-26 14:35 | Emergency (ER) | payer BC, SELFPAY ==
[2022-07-26 14:52] VITALS: BP 141/97; PULSE 74; RESP 16; TEMP 36.8; O2SAT 97; BMI 36.6
--- NOTE | 2022-07-26 15:08 | XR_ITS ---
PROCEDURE INFORMATION: Exam: XR Left Foot Exam date and time: 07/26/2022 3:05 PM Age: 57 years old Clinical indication: Injury or trauma; Other: Stepped on a nail; Puncture; Foot; Left; Foreign body involvement not specified; Additional info: Stepped on nail 07/26 TECHNIQUE: Imaging protocol: Radiologic exam of the Left foot. Views: 3 or more views. COMPARISON: No relevant prior studies available. FINDINGS: Bones/joints: There is no evidence of acute fracture.There is no evidence of malalignment or dislocation. Calcaneal spur at the insertion of the plantar fascia Soft tissues: Normal. IMPRESSION: There is no evidence of acute fracture.There is no evidence of malalignment or dislocation.
--- NOTE | 2022-07-26 15:08 | EXP.UTC ---
Discharge Plan Disposition Patient Disposition: Home, Self-Care Condition: Good Prescriptions Prescriptions: New ciprofloxacin HCl [Cipro] 500 mg tablet 500 mg PO BID 10 Days Qty: 20 0RF mupirocin 2 % ointment 1 applic topical TID 7 Days Qty: 15 0RF No Action furosemide 20 MG tablet 20 mg PO DAILY losartan-hydrochlorothiazide 1 EACH tablet 1 tab PO DAILY ascorbic acid (vitamin C) [Vitamin C] 1,000 MG tablet 1,000 mg PO DAILY loratadine [Allergy Relief (loratadine)] 10 MG tablet,disintegrating 10 mg PO DAILY levothyroxine 25 MCG tablet 25 mcg PO DAILY naproxen 500 MG tablet 500 mg PO DAILY rosuvastatin 10 MG tablet 10 mg PO DAILY glucosamine sulfate 2KCl 1,000 MG tablet 1,500 mg PO DAILY esomeprazole magnesium [Nexium Packet] [address] for susp in packet 10 mg PO DAILY ro-yias-nabby-lycopene-ginkgo [One Daily For Men 50 Plus Adv] 1 EACH tablet 1 ea PO DAILY omzqeuco-oktf-[id number]-C-bonifacio-bosw [Osteo Bi-Flex Triple Strength] 1 EACH tablet 1 ea PO DAILY Referrals Follow up/Referrals: Edilberto Andrews MD [Primary Care Provider] - See instructions Nurys Gaffney DPM [Staff Physician] - See instructions Activity Restrictions/Add. Instructions Additional Instructions/Restrictions: Rest the extremity, Elevate the extremity as tolerated while you are resting. Take ibuprofen for pain. Follow up with Dr. Gaffney (podiatry) if you have continued problems with this. I put in a referral but you need to call her office and schedule an appointment. Follow up with your regular doctor. GO TO THE ER FOR ANY WORSENING SYMPTOMS Clinical Impressions Clinical Impression: Puncture wound of foot, right Instructions Patient Instructions: DI for Puncture Wound, Tetanus, Diphtheria, Pertussis (Tdap) Vaccine Discharge ED Provider: Celestino Cee [facility] General Stated complaint: stepped on nail 07/26 Mode of Arrival: Ambulatory Source of Information: Patient Limitations: No Limitations Time Seen by Provider: 07/26/22 15:08 Description of Symptoms (Recalled from Triage Doc. by RN): pt reports he stepped on a nail today. right foot HEENT Symptoms (Recalled from RN notes): No Resp Symptoms (Recalled from RN notes): No Skin Symptoms (Recalled from RN notes): Yes MS Symptoms (Recalled from RN notes): No Functional Status (Recalled from RN notes): n/a History of Present Illness Provider Complaint: He states that he stepped on a nail today. He has a puncture wound on the bottom of his left foot. He is not a diabetic. Related Data Home Medications Medication Instructions Recorded Confirmed furosemide 20 mg tablet 20 mg PO DAILY Fluid 07/08/18 11/15/18 losartan 100 1 tab PO DAILY bp 07/08/18 11/15/18 mg-hydrochlorothiazide 12.5 mg tablet ascorbic acid (vitamin C) 1,000 mg 1,000 mg PO DAILY Supplement 07/15/18 11/15/18 tablet (Vitamin C) esomeprazole magnesium 10 mg 10 mg PO DAILY stomach 07/15/18 11/15/18 granules delayed release for susp (Nexium Packet) glucosamine 750 oq-auerrmvuonj-ssd 1 ea PO DAILY Supplement 07/15/18 11/15/18 no1 644 mg-C 30 mg-bonifacio 1 mg tablet (Osteo Bi-Flex Triple Strength) glucosamine sulfate 2KCl 1,000 mg 1,500 mg PO DAILY Arthritis 07/15/18 11/15/18 tablet levothyroxine 25 mcg tablet 25 mcg PO DAILY thyroid 07/15/18 11/15/18 loratadine 10 mg disintegrating 10 mg PO DAILY allergies 07/15/18 11/15/18 tablet (Allergy Relief (loratadine)) wkcngihh-qlnh-clniv acid 400 1 ea PO DAILY Supplement 07/15/18 11/15/18 mcg-lycopene 600 mcg-ginkgo 120 mg tablet (One Daily For Men 50 Plus Adv) naproxen 500 mg tablet 500 mg PO DAILY Pain 07/15/18 11/15/18 rosuvastatin 10 mg tablet 10 mg PO DAILY Cholesterol 07/15/18 11/15/18 Previous Rx's Medication Instructions Recorded ciprofloxacin HCl 500 mg tablet 500 mg PO BID 10 days #20 tabs 07/26/22 (Cipro) mupirocin 2 % topical ointm
[2022-07-26 15:45] VITALS: BP 141/97; PULSE 74; RESP 16; TEMP 36.8
== END 2022-07-26 15:51 | disposition home or self-care (01) ==
PROVIDERS: Emergency Provider Nurse Practitioner Family; PCP Family Medicine
DX: S91.331A Puncture wound without foreign body, right foot, initial encounter (principal); W45.0XXA Nail entering through skin, initial encounter; Z23 Encounter for immunization
CPT/HCPCS: 73630; 90471; 90714; 99212; G0463

== ENCOUNTER → 2023-08-02 14:50 | Outpatient (CLI) | payer BC, SELFPAY ==
--- NOTE | 2023-08-02 15:05 | XR_ITS ---
FINAL REPORT CLINICAL HISTORY: RT KNEE PAIN COMPARISON: None FINDINGS: Three views of the right knee reveal no evidence of fracture or dislocation. The bony alignment is normal. Mild to moderate degenerative changes present, most prominently in the medial compartment. There is calcification of the medial meniscus, and prepatellar soft tissue swelling is present. There is no evidence of joint effusion. IMPRESSION: No acute abnormality identified. Degenerative change as described above. Reviewed, Interpreted and Dictated by Terrence Herring III, MD Transcribed by Sammie Greer Authenticated and [facility]
== END ==
PROVIDERS: PCP Nurse Practitioner Family; Visit Provider Nurse Practitioner Family
DX: M25.561 Pain in right knee (principal)
CPT/HCPCS: 73562